=== PATIENT | male | born 1940 | race Caucasian/White ===

== ENCOUNTER 2017-07-27 02:56 | Emergency (ER) | payer OTHER ==
[2017-07-27 03:11] VITALS: BMI 24.7
[2017-07-27] MEDS ORDERED: TORADOL 60 MG VIAL IM ONE (03:54)
--- NOTE | 2017-07-27 03:55 | DR.GENAD ---
HPI - PCP Primary Care Physician: MU MCCLAIN - Complaint/Symptoms Chief Complaint Doctors Comments: Patient presents with complaint of left shoulder pain, congestion, cough, muscle pain. He admits to getting influneza shot. Chief Complaint:: LEFT SHOULDER PAIN; MUSCLE SORENESS; COLD SYMPTOMS X 2 WEEKS Self Treatment fo Chief Complaint: ROBITUSSIN WITH COEINE; IBUPROFEN; MUCINEX ER - Source History Provided: Patient - Mode of Arrival Mode of Arrival: Ambulatory - Timing Onset of Chief Complaint: 07/26/17 PMH - PMH Past Medical History: Yes Past Medical History: Coronary Artery Disease, Hypertension Past Medical History Comment: STENTS X 2 Past Surgical History: Yes Past Surgical History Comment: BACK SX - Family History History of Family Medical Conditions: No - Social History Alcohol Use: None Do you use any recreational Drugs:: No Lives With: Spouse Lives Where: Home - infectious screening In the last 2 months have you had wt loss of >10#?: NO Have you had fever, night sweats or hemotysis?: No Have you traveled outside the country in the last 6 months?: No Isolation: Standard ROS - Review of Systems Eyes: No Symptoms Reported ENTM: No Symptoms Reported Respiratoy: No Symptoms Reported Cardiovascular: No Symptoms Reported Gastrointestinal/Abdominal: No Symptoms Reported Genitourinary: No Symptoms Reported Neurological: No Symptoms Reported Musculoskeletal: Shoulder (left) Integumentary: No Symptoms Reported Hematologic/Lymphatic: No Symptoms Reported Endocrine: No Symptoms Reported Psychiatric: No Symptoms Reported All Other Systems: Reviewed and Negative PE - Vital Signs Vitals: Temperature 100.7 F Pulse Rate 92 Respiratory Rate 20 Blood Pressure 148/65 O2 Sat by Pulse Oximetry 93 - General Limitations: No Limitations General Appearance: Alert, In No Apparent Distress - Head Head Exam: Normal Inspection, Atraumatic - Eyes Eye exam: Normal Appearance, PERRL, EOMI - ENT ENT Exam: Normal Exam External Ear Exam: Normal External Inspection TM/Canal Exam: Bilateral Normal Nose Exam: Normal Nose Exam Mouth Exam: Normal Inspection Throat Exam: Normal Inspection - Neck Neck Exam: Normal Inspection - Chest Chest Inspection: Normal Inspection - Respiratory Respiratory Exam: Normal Lung Sounds Bilat Respiratory Exam: Bilateral Clear to Auscultation - Cardiovascular Cardiovascular Exam: Regular Rate, Normal Rhythm - Abdominal Exam Abdominal Exam: Normal Inspection, Normal Bowel Sounds Abdominal Tenderness: negative: RUQ, RLQ, LUQ, LLQ, Epigastrium, Suprapubic, Diffuse, Mild, Moderate, Severe, Other - Extremities Extremities Exam: Normal Inspection, Tenderness (left shoulder) - Back Back Exam: Normal Inspection - Neurologic Neurological Exam: Alert, Oriented X3, CN II-XII Intact - Psychiatric Psychiatric Exam: Normal Affect, Normal Mood - Skin Skin Exam: Warm, Dry, Intact, Normal Color Course - Reevaluation 1st: Improved ROR - XRAY XRAY Interpreted by: Radiologist (Shoulder: Moderate left AC and glenohumeral joint osteoarthrosis with chronic rotator cuff tear insufficiency; however, no acute fracture or dislocation within the left shoulder.) - Diagnosis Discharge Problem: Moderate glenohumeral osteoarthrosis, chronic rotator cuff teas insufficiency - Discharge Plan Condition: Stable - Follow ups/Referrals Follow ups/Referrals: [facility],None [Primary Care Provider] - 3 days - Instructions
[2017-07-27] MEDS ORDERED: TORADOL 60 MG VIAL ONE (03:58)
--- NOTE | 2017-07-27 04:57 | RAD ---
Three views of the left shoulder. Indication: Left shoulder pain with muscle soreness Findings: No acute fracture dislocation within the left shoulder. There is moderate glenohumeral oste oarthrosis. There is also moderate AC joint osteoarthrosis. Elevation left humeral head consistent wi th chronic rotator cuff tear and insufficiency. No displaced left-sided rib fracture. No acute cardio pulmonary abnormality within the visualized left thorax. Impression: Moderate left AC and glenohumeral joint osteoarthrosis with chronic rotator cuff tear ins ufficiency; however, no acute fracture or dislocation within the left shoulder. Reported By:
[2017-07-27 05:14] VITALS: BP 132/76
== END 2017-07-27 05:16 | disposition home or self-care (01) ==
LOC: ER 02:56
DX: M19.019 Primary osteoarthritis, unspecified shoulder (principal); M75.101 Unspecified rotator cuff tear or rupture of right shoulder, not specified as traumatic
CPT/HCPCS: 73030; 96372; 99282; 99283; J1885